=== PATIENT | female | born 1970 | race Hispanic/Latino ===

== ENCOUNTER 2021-04-20 10:07 | Emergency (ER) | payer SELFPAY ==
[2021-04-20] MEDS ORDERED: SODIUM CHLORIDE 0.9% 1000 ML 1,000 ML IV ONE (11:36)
[2021-04-20] MEDS ORDERED: FAMOTIDINE 20 MG/2 ML INJ IV ONE (11:36)
[2021-04-20] MEDS ORDERED: MORPHINE 4 MG/1 ML INJ IV ONE (11:36)
--- NOTE | 2021-04-20 12:00 | Emergency Department Report ---
ED Abdominal Pain HPI - General Chief Complaint: Abdominal Pain Stated Complaint: RT SIDE PAINS Time Seen by Provider: 04/20/21 10:39 Source: patient Mode of arrival: Ambulatory Limitations: No Limitations - History of Present Illness Initial Comments: Patient is a 50-year-old female presents emergency room with complaints of abdominal pain for several months but has been worsening in the last few days. She states that she has right flank pain and generalized abdominal pain. She states that she has lost approximately 30 pounds in 6 months. She states occasionally she does see blood in her stool but she reports she has a history of hemorrhoids, she states that she has not seen blood in her stool this week. She states that she has had a change in her stool caliber, she states that she sometimes has difficulty having bowel movements and has to use a laxative and then is able to have a bowel movement. She states that sometimes her stool just comes out as small hard ronnie. Patient states that she last had a colonoscopy 10 years ago and reports she had a polyp at that time, she states that she was supposed to follow back up but did not. She has associated nausea and increased gas and feels like she needs to burp. She states her symptoms are worse after eating. She states occasionally she has an episode of vomiting after eating b ecause she feels like she has pressure on her abdomen. She states that she does get abdominal bloating. She denies any fever, diarrhea, hematochezia, melena, hematemesis, urinary symptoms. no other PMHx. allergy ibuprofen. - Related Data Previous Rx's Medication Instructions Recorded Last Taken Type Docusate Sodium [Colace] 100 mg PO BID PRN #30 capsule 04/20/21 Unknown Rx HYDROcodone/APAP 5-325 [[place] 1 each PO Q6HR PRN #12 tablet 04/20/21 Unknown Rx 5/325] Zolpidem [Ambien] 5 mg PO QHS PRN #20 tablet 04/20/21 Unknown Rx Allergies Allergy/AdvReac Type Severity Reaction Status Date / Time ibuprofen AdvReac Nausea Verified 04/20/21 10:10 ED Review of Systems ROS: Stated complaint: RT SIDE PAINS Other details as noted in HPI Comment: All other systems reviewed and negative ED Past Medical Hx - Past Medical History Previous Medical History?: No - Surgical History Past Surgical History?: No - Medications Home Medications: Home Medications Medication Instructions Recorded Confirmed Last Taken Type Docusate Sodium [Colace] 100 mg PO BID PRN #30 capsule 04/20/21 Unknown Rx HYDROcodone/APAP 5-325 [[place] 1 each PO Q6HR PRN #12 tablet 04/20/21 Unknown Rx 5/325] Zolpidem [Ambien] 5 mg PO QHS PRN #20 tablet 04/20/21 Unknown Rx ED Physical Exam - General Limitations: No Limitations General appearance: alert, in no apparent distress - Head Head exam: Present: atraumatic, normocephalic - Eye Eye exam: Present: normal appearance - ENT ENT exam: Present: mucous membranes moist - Respiratory Respiratory exam: Present: normal lung sounds bilaterally. Absent: respiratory distress, wheezes, rales, rhonchi, stridor, chest wall tenderness, accessory muscle use, decreased breath sounds, prolonged expiratory - Cardiovascular Cardiovascular Exam: Present: regular rate, normal rhythm, normal heart sounds. Absent: systolic murmur, diastolic murmur, rubs, gallop - GI/Abdominal GI/Abdominal exam: Present: soft, tenderness (mild generalized ), normal bowel sounds. Absent: distended, guarding, rebound, rigid - Back Exam Back exam: Present: CVA tenderness (R). Absent: CVA tenderness (L) - Neurological Exam Neurological exam: Present: alert, oriented X3 - Psychiatric Psychiatric exam: Present: normal affect, normal mood - Skin Skin exam: Present: warm, dry, intact ED Course Vital Signs 04/20/21 04/20/21 10:11 15:52 Temperature 98.1 F 98.1 F Pulse Rate 100 H 90 Respiratory 18 16 Rate Blood Pressure 131/87 Blood Pressure 134/89 [Left] O2 Sat by Pulse 100 100 Oximetry ED Medical Decision Making - Lab Data Result diagrams: 04/20/21 12:06 04/20/21 12:06 Lab Results 04/20/21 04/20/21 04/20/21 Range/Units 12:06 12:06 12:06 WBC 11.3 H (4.5-11.0) K/mm3 RBC 4.79 (3.65-5.03) M/mm3 Hgb 8.7 L (10.1-14.3) gm/dl Hct 28.6 L (30.3-42.9) % MCV 60 L (79-97) fl MCH 18 L (28-32) pg MCHC 30 (30-34) % RDW 20.6 H (13.2-15.2) % Plt Count 431 (140-440) K/mm3 Lymph % (Auto) 15.9 (13.4-35.0) % Burnett % (Auto) 8.4 H (0.0-7.3) % Eos % (Auto) 1.4 (0.0-4.3) % Baso % (Auto) 2.7 H (0.0-1.8) % Lymph # (Auto) 1.8 (1.2-5.4) K/mm3 Burnett # (Auto) 0.9 H (0.0-0.8) K/mm3 Eos # (Auto) 0.2 (0.0-0.4) K/mm3 Baso # (Auto) 0.3 H (0.0-0.1) K/mm3 Seg Neutrophils % 71.6 H (40.0-70.0) % Seg Neutrophils # 8.1 H (1.8-7.7) K/mm3 Sodium 138 (137-145) mmol/L Potassium 4.2 (3.6-5.0) mmol/L Chloride 102.0 (98-107) mmol/L Carbon Dioxide 26 (22-30) mmol/L Anion Gap 14 mmol/L BUN 6 L (7-17) mg/dL Creatinine 0.4 L (0.6-1.2) mg/dL Estimated GFR > 60 ml/min BUN/Creatinine Ratio 15 % Glucose 85 (65-100) mg/dL Calcium 8.7 (8.4-10.2) mg/dL Total Bilirubin 0.40 (0.1-1.2) mg/dL AST 20 (5-40) units/L ALT 7 (7-56) units/L Alkaline Phosphatase 275 H (35-129) units/L Total Protein 6.4 (6.3-8.2) g/dL Albumin 3.4 L (3.9-5) g/dL Albumin/Globulin Ratio 1.1 % Lipase 16 (13-60) units/L HCG, Qual Negative (Negative) Vital Signs 04/20/21 04/20/21 10:11 15:52 Temperature 98.1 F 98.1 F Pulse Rate 100 H 90 Respiratory 18 16 Rate Blood Pressure 131/87 Blood Pressure 134/89 [Left] O2 Sat by Pulse 100 100 Oximetry - Radiology Data Radiology results: report reviewed Ordering Physician: LAW SHAY Date of Service: 04/20/21 Procedure(s): CT abdomen pelvis w con Accession Number(s): [id number] cc: LAW SHAY CT ABDOMEN AND PELVIS WITH CONTRAST HISTORY: Generalized abdominal pain COMPARISON: None TECHNIQUE: Routine abdominal and pelvic CT exam performed following intravenous contrast administration.. All CT scans at this location are performed using CT dose reduction for ALARA by means of automated exposure control. FINDINGS: CT ABDOMEN: Lung Bases: No significant abnormality. Liver: There is a large heterogeneous mass involving most of the right hepatic lobe measuring 21 x 14 cm. A second heterogeneous mass is seen in the lateral left hepatic lobe measuring 9.8 x 11.6 cm. Biliary: No significant abnormality. Spleen: No significant abnormality. Unenlarged. Pancreas: No significant abnormality. Adrenals: No significant abnormality. Kidneys: No significant abnormality. Lymphatics: No lymphadenopathy. Vasculature: No significant abnormality. Bowel/Peritoneum: There appears to be a focal masslike area of wall thickening in the distal sigmoid colon measuring about 6.7 x 3.2 cm. There our adjacent mesenteric lymph nodes concerning for metastatic adenopathy, measuring 2.7 x 2.1 cm. There is a small amount free fluid. There is no structure or free air. CT PELVIC: : No significant abnormality. Lymphatics: No lymphadenopathy. Osseous Structures: No aggressive appearing osseous lesions. Additional Findings: None IMPRESSION: 1. 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 Signer Name: Deonte Moseley MD Signed: 04/20/2021 2:17 PM Workstation Name: [id number] Transcribed By: ELVIE Dictated By: Deonte Moseley MD Electronically Authenticated By: Deonte Moseley MD Signed Date/Time: 04/20/21 141 DD/ 13 TD/TT: - Medical Decision Making Patient is a 50-year-old female presents emergency room with complaints of abdominal pain for several months but has been worsening in the last few days. She states that she has right flank pain and generalized abdominal pain. She states that she has lost approximately 30 pounds in 6 months. She states occasionally she does see blood in her stool but she reports she has a history of hemorrhoids, she states that she has not seen blood in her stool this week. She states that she has had a change in her stool caliber, she states that she sometimes has difficulty having bowel movements and has to use a laxative and then is able to have a bowel movement. She states that sometimes her stool just comes out as small hard ronnie. Patient states that she last had a colonoscopy 10 years ago and reports she had a polyp at that time, she states that she was supposed to follow back up but did not. She has associated nausea and increased gas and feels like she needs to burp. She states her symptoms are worse after eating. She states occasionally she has an episode of vomiting after eating because she feels like she has pressure on her abdomen. She states that she does get abdominal bloating. She denies any fever, diarrhea, hematochezia, melena, hematemesis, urinary symptoms. no other PMHx. allergy ibuprofen. Vitals are stable. Lab significant for elevated alk phos, otherwise stable. CT abdomen pelvis with IV contrast 1. 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 Patient given medications on the emergency department with improvement of her symptoms. Discussed case with Dr. Rena Lyons, ER attending who advised outpatient oncology follow-up. Patient states that she also has issues with insomnia at night, Dr. Rena Lyons recommended to prescribe Ambien. Patient given prescription for medications. Advised patient Please take medication as prescribed. Please follow-up with oncologist. Return to emergency room for any new or worsening symptoms. Critical care attestation.: If time is entered above; I have spent that time in minutes in the direct care of this critically ill patient, excluding procedure time. ED Disposition Clinical Impression: Colonic mass, Liver mass, LAD (lymphadenopathy) Disposition: - TO HOME OR SELFCARE Is pt being admited?: No Does the pt Need Aspirin: No Condition: Stable Instructions: Abdominal Pain (ED) Additional Instructions: Please take medication as prescribed. Please follow-up with oncologist. Return to emergency room for any new or worsening symptoms. Prescriptions: Zolpidem [Ambien] 5 mg PO QHS PRN #20 tablet PRN Reason: Sleep Docusate Sodium [Colace] 100 mg PO BID PRN #30 capsule PRN Reason: constipation HYDROcodone/APAP 5-325 [[place] 5/325] 1 each PO Q6HR PRN #12 tablet PRN Reason: Pain , Severe (7-10) Referrals: PRIMARY CARE, [Primary Care Provider] - 2-3 Days WALT SANZ MD [Staff Physician] - 2-3 Days Time of Disposition: 14:53 Print Language: SLOVAK
[2021-04-20 12:16] LABS: Basophils # (Auto) 0.3 K/mm3 (0.0-0.1); Basophils % (Auto) 2.7 % (0.0-1.8); Eosinophils # (Auto) 0.2 K/mm3 (0.0-0.4); Eosinophils % (Auto) 1.4 % (0.0-4.3); Hematocrit 28.6 % (30.3-42.9); Hemoglobin 8.7 gm/dl (10.1-14.3); Lymphocytes # (Auto) 1.8 K/mm3 (1.2-5.4); Lymphocytes % (Auto) 15.9 % (13.4-35.0); Mean Corpuscular HGB Conc 30 % (30-34); Monocytes # (Auto) 0.9 K/mm3 (0.0-0.8); Monocytes % (Auto) 8.4 % (0.0-7.3); Platelet Count 431 K/mm3 (140-440); Red Blood Count 4.79 M/mm3 (3.65-5.03)
[2021-04-20 12:18] LABS: Mean Corpuscular Volume 60 fl (79-97); Red Cell Distribution Width 20.6 % (13.2-15.2)
[2021-04-20] MEDS: ONDANSETRON 4 MG/2 ML INJ IV ONE ×2 (12:21→12:22)
[2021-04-20 12:39] LABS: Alanine Aminotransferase 7 units/L (7-56); Albumin 3.4 g/dL (3.9-5); Blood Urea Nitrogen 6 mg/dL (7-17); Calcium 8.7 mg/dL (8.4-10.2); Hemolysis Index 3
[2021-04-20 12:41] LABS: BUN/Creatinine Ratio 15
--- NOTE | 2021-04-20 14:21 | Cat Scan Report ---
CT ABDOMEN AND PELVIS WITH CONTRAST HISTORY: Generalized abdominal pain COMPARISON: None TECHNIQUE: Routine abdominal and pelvic CT exam performed following intravenous contrast administrat ion.. All CT scans at this location are performed using CT dose reduction for ALARA by means of autom ated exposure control. FINDINGS: CT ABDOMEN: Lung Bases: No significant abnormality. Liver: There is a large heterogeneous mass involving most of the right hepatic lobe measuring 21 x 14 cm. A second heterogeneous mass is seen in the lateral left hepatic lobe measuring 9.8 x 11.6 cm. Biliary: No significant abnormality. Spleen: No significant abnormality. Unenlarged. Pancreas: No significant abnormality. Adrenals: No significant abnormality. Kidneys: No significant abnormality. Lymphatics: No lymphadenopathy. Vasculature: No significant abnormality. Bowel/Peritoneum: There appears to be a focal masslike area of wall thickening in the distal sigmoid colon measuring about 6.7 x 3.2 cm. There our adjacent mesenteric lymph nodes concerning for metastat ic adenopathy, measuring 2.7 x 2.1 cm. There is a small amount free fluid. There is no structure or f ree air. CT PELVIC: : No significant abnormality. Lymphatics: No lymphadenopathy. Osseous Structures: No aggressive appearing osseous lesions. Additional Findings: None IMPRESSION: 1. 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 Signer Name: Deonte Moseley MD Signed: 04/20/2021 2:17 PM Workstation Name: [id number]
[2021-04-20] MEDS ORDERED: SODIUM CHLORIDE 0.9% 1000 ML 1,000 ML ONE (15:23)
[2021-04-20 15:54] VITALS: BP 134/89
== END 2021-04-20 15:52 | disposition home or self-care (01) ==
LOC: ED 10:07
DX: R59.1 Generalized enlarged lymph nodes (principal); R16.0 Hepatomegaly, not elsewhere classified; K63.9 Disease of intestine, unspecified; Z79.899 Other long term (current) drug therapy; Z88.6 Allergy status to analgesic agent
CPT/HCPCS: 36415; 74177; 80053; 83690; 84703; 85025; 96361; 96374; 96375; 99284; J2270; J2405; J7030; Q9967